=== PATIENT | female | born 1960 | race Caucasian/White ===

== ENCOUNTER 2017-02-24 09:55 | Emergency (ER) | payer OTHER ==
[~2017-02-24] VITALS: Ht 165.1 cm; Wt 70.0 kg
[~2017-02-24 09:55] MED LIST: BACT800T5 PO; ENBR50IN3 SC
[2017-02-24 09:57] VITALS: BP 126/69; PULSE 67; RESP 20; TEMP 98.2; O2SAT 97
--- NOTE | 2017-02-24 10:23 | RADRPT ---
EXAM DATE/TIME: 02/24/2017 10:15 [place] COMPARISON: No previous studies available for comparison. INDICATIONS : Mid sternal chest pains with some mild pressure. MEDICAL HISTORY : None. SURGICAL HISTORY : None. ENCOUNTER: Initial ACUITY: 1 day PAIN SCORE: 3/10 LOCATION: Bilateral chest FINDINGS: PA and lateral views of the chest demonstrate the lungs to be symmetrically aerated without evidence of mass, infiltrate or effusion. The cardiomediastinal contours are unremarkable. Osseous structure s are intact. CONCLUSION: No acute disease. Donny Avery Jr., MD on February 24, 2017 at 10:21 Board Certified Radiologist. This report was verified electronically.
[2017-02-24 10:30] LABS: AUTOMATED NEUTROPHIL # 5.4 TH/MM3 (1.8-7.7); BASOPHIL % 0.6 % (0.0-2.0); EOSINOPHIL # 0.1 TH/MM3 (0-0.4); EOSINOPHIL % 1.8 % (0.0-4.0); HEMATOCRIT 40.3 % (35.0-46.0); HEMO FLAGS DIFF FINAL; LYMPH % 16.9 % (9.0-44.0); LYMPHOCYTE # 1.3 TH/MM3 (1.0-4.8); MEAN CELL VOLUME 90.3 FL (80.0-100.0); MEAN CORPUSCULAR HEMOGLOBIN 31.2 PG (27.0-34.0); MEAN CORPUSCULAR HGB CONC 34.6 % (32.0-36.0); MONO % 8.6 % (0.0-8.0); NEUT % 72.1 % (16.0-70.0); PLATELET COUNT 215 TH/MM3 (150-450); RED BLOOD COUNT 4.47 MIL/MM3 (4.00-5.30); RED CELL DISTRIBUTION WIDTH 13.2 % (11.6-17.2); WHITE BLOOD COUNT 7.5 TH/MM3 (4.0-11.0)
[2017-02-24 10:38] LABS: APTT (PATIENT) 27.5 SEC (24.3-30.1); INTERNATIONAL NORMALIZED RATIO 0.9 RATIO; PROTHROMBIN TIME - PATIENT 10.3 SEC (9.8-11.6)
[2017-02-24 10:54] LABS: ANION GAP 8 MEQ/L (5-15); BLOOD UREA NITROGEN 9 MG/DL (7-18); CHLORIDE 107 MEQ/L (98-107); GLOMERULAR FILTRATION RATE 77 ML/MIN (>89); MAGNESIUM 2.3 MG/DL (1.5-2.5); POTASSIUM 3.9 MEQ/L (3.5-5.1); SODIUM (NA) 143 MEQ/L (136-145)
[2017-02-24 11:04] LABS: CREATINE KINASE 64 U/L (26-192)
[2017-02-24] MEDS ORDERED: MELO-1 PO (11:34)
[2017-02-24] MEDS ORDERED: CYCL1TAB29 PO (11:34)
--- NOTE | 2017-02-24 11:35 | PD ---
HPI Chief Complaint: Dizziness Time Seen by Provider: 11:27 Travel History International Travel<30 days: No Contact w/Intl Traveler<30days: No Traveled to known affect area: No History of Present Illness HPI Patient is a 56-year-old female presenting to emergency evaluation of left neck pain and chest pressure. Patient states it started over the weekend, there was no previous injury or trauma. Patient states the pain in the left neck radiates down her left arm. When the pain exacerbates it caused her to feel nauseated and dizzy. She reports a discomfort in her chest, she does report indigestion. The neck pain is causing to her have a headache that starts in the base of her head and radiates up. Patient has had headaches in the past which are similar to what she is experiencing now. Patient has no cardiac history, she really denies any significant family history of cardiac illness. She has a past medical history significant for hyperlipidemia and psoriasis. She is a nonsmoker, drinks wine occasionally. She reports her pain level is a 3 -5 out of 10. 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 Reported Meds & Prescriptions Reported Meds & Active Scripts Active Flexeril (Cyclobenzaprine HCl) 10 Mg Tab 10 Mg PO TID PRN 10 Days Meloxicam 15 Mg Tab 15 Mg PO DAILY PRN Review of Systems Except as stated in HPI: all other systems reviewed are Neg HENT: Positive: Headaches, Neck Pain Cardiovascular: Positive: Chest Pain or Discomfort Gastrointestinal: Positive: Nausea Musculoskeletal: Positive: Myalgias, Cramping Physical Exam Narrative GENERAL: Well-developed, well-nourished, alert female. Resting comfortably in no acute distress. SKIN: Warm and dry. Hyperpigmented scaly patches noted on bilateral upper extremities, chest wall, back. HEAD: Atraumatic. Normocephalic. EYES: Pupils equal and round. No scleral icterus. No injection or drainage. ENT: No nasal bleeding or discharge. Mucous membranes pink and moist. NECK: Trachea midline. No JVD. No meningeal signs. Full range of motion with rotation, flexion, extension. CARDIOVASCULAR: Regular rate and rhythm. RESPIRATORY: No accessory muscle use. Clear to auscultation. Breath sounds equal bilaterally. GASTROINTESTINAL: Abdomen soft, non-tender, nondistended. Hepatic and splenic margins not palpable. MUSCULOSKELETAL: Extremities without clubbing, cyanosis, or edema. No obvious deformities. Tenderness to palpation in left paraspinal musculature. NEUROLOGICAL: Awake and alert. No obvious cranial nerve deficits. Motor grossly within normal limits. Five out of 5 muscle strength in the arms and legs. Normal speech. PSYCHIATRIC: Appropriate mood and affect; insight and judgment normal. Data Data Last Documented VS Vital Signs Date Time Temp Pulse Resp B/P Pulse Ox O2 Delivery O2 Flow Rate FiO2 02/24/17 09:57 98.2 67 20 126/69 97 Room Air Orders Electrocardiogram (02/24/17 10:02) Basic Metabolic Panel (Bmp) (02/24/17 10:02) Ckmb (Isoenzyme) Profile (02/24/17 10:02) Complete Blood Count With Diff (02/24/17 10:02) Magnesium (Mg) (02/24/17 10:02) Prothrombin Time / Inr (Pt) (02/24/17 10:02) Act Partial Throm Time (Ptt) (02/24/17 10:02) Troponin I (02/24/17 10:02) Chest, Pa & Lat (02/24/17 10:02) Labs Laboratory Tests Test 02/24/17 10:10 White Blood Count 7.5 TH/MM3 Red Blood Count 4.47 MIL/MM3 Hemoglobin 13.9 GM/DL Hematocrit 40.3 % Mean Corpuscular Volume 90.3 FL Mean Corpuscular Hemoglobin 31.2 PG Mean Corpuscular Hemoglobin 34.6 % Concent Red Cell Distribution Width 13.2 % Platelet Count 215 TH/MM3 Mean Platelet Volume 8.3 FL Neutrophils (%) (Auto) 72.1 % Lymphocytes (%) (Auto) 16.9 % Monocytes (%) (Auto) 8.6 % Eosinophils (%) (Auto) 1.8 % Basophils (%) (Auto) 0.6 % Neutrophils # (Auto) 5.4 TH/MM3 Lymphocytes # (Auto) 1.3 TH/MM3 Monocytes # (Auto) 0.6 TH/MM3 Eosinophils # (Auto) 0.1 TH/MM3 Basophils # (Auto) 0.0 TH/MM3 CBC Comment DIFF FINAL Differential Comment Prothrombin Time 10.3 SEC Prothromb Time International 0.9 RATIO Ratio Activated Partial 27.5 SEC Thromboplast Time Sodium Level 143 MEQ/L Potassium Level 3.9 MEQ/L Chloride Level 107 MEQ/L Carbon Dioxide Level 28.0 MEQ/L Anion Gap 8 MEQ/L Blood Urea Nitrogen 9 MG/DL Creatinine 0.78 MG/DL Estimat Glomerular Filtration 77 ML/MIN Rate Random Glucose 84 MG/DL Calcium Level 9.1 MG/DL Magnesium Level 2.3 MG/DL Total Creatine Kinase 64 U/L Troponin I LESS THAN 0.02 NG/ML MDM Medical Decision Making Medical Screen Exam Complete: Yes Emergency Medical Condition: Yes Interpretation(s) Last Impressions Chest X-Ray 02/24/17 1002 Signed Impressions: Service Date/Time: Friday, February 24, 2017 10:15 - CONCLUSION: No acute disease. Donny Avery Jr., MD Laboratory Tests Test 02/24/17 10:10 White Blood Count 7.5 TH/MM3 Red Blood Count 4.47 MIL/MM3 Hemoglobin 13.9 GM/DL Hematocrit 40.3 % Mean Corpuscular Volume 90.3 FL Mean Corpuscular Hemoglobin 31.2 PG Mean Corpuscular Hemoglobin 34.6 % Concent Red Cell Distribution Width 13.2 % Platelet Count 215 TH/MM3 Mean Platelet Volume 8.3 FL Neutrophils (%) (Auto) 72.1 % Lymphocytes (%) (Auto) 16.9 % Monocytes (%) (Auto) 8.6 % Eosinophils (%) (Auto) 1.8 % Basophils (%) (Auto) 0.6 % Neutrophils # (Auto) 5.4 TH/MM3 Lymphocytes # (Auto) 1.3 TH/MM3 Monocytes # (Auto) 0.6 TH/MM3 Eosinophils # (Auto) 0.1 TH/MM3 Basophils # (Auto) 0.0 TH/MM3 CBC Comment DIFF FINAL Differential Comment Prothrombin Time 10.3 SEC Prothromb Time International 0.9 RATIO Ratio Activated Partial 27.5 SEC Thromboplast Time Sodium Level 143 MEQ/L Potassium Level 3.9 MEQ/L Chloride Level 107 MEQ/L Carbon Dioxide Level 28.0 MEQ/L Anion Gap 8 MEQ/L Blood Urea Nitrogen 9 MG/DL Creatinine 0.78 MG/DL Estimat Glomerular Filtration 77 ML/MIN Rate Random Glucose 84 MG/DL Calcium Level 9.1 MG/DL Magnesium Level 2.3 MG/DL Total Creatine Kinase 64 U/L Troponin I LESS THAN 0.02 NG/ML Vital Signs Date Time Temp Pulse Resp B/P Pulse Ox O2 Delivery O2 Flow Rate FiO2 02/24/17 09:57 98.2 67 20 126/69 97 Room Air Differential Diagnosis Radiculopathy versus ACS versus metabolic abnormality versus other Narrative Course Patient is a 56-year-old female presenting with 5 days of left neck pain radiating to her arm. She also reports vague chest discomfort, she denied any significant history. Her vital signs are stable. Chest x-ray shows no acute disease, labs are reassuring, cardiac enzymes are negative 1 set. There is a tender point to the left neck musculature. Patient has not taken anything to alleviate the pain. Patient was also seen and evaluated by my attending physician. Patient does have a primary care provider in which to follow-up with. Less likely would be a cardiac etiology as symptoms started when the neck discomfort started, and again there is a tender point in the left neck musculature. EKG is also reassuring. It shows sinus rhythm with a rate of 59. Patient was given strict return precautions. She will be provided with anti- inflammatory as well as a muscle relaxer. She was advised to return immediately for any new or worsening symptoms. Patient verbalized understanding of instructions. Patient is stable for discharge. Diagnosis Primary Impression: Cervical radiculopathy Additional Impression: Discomfort in chest Referrals: Primary Care Physician 2 days Patient Instructions: Cervical Radiculopathy (ED), Chest Pain (ED), General Instructions Additional Instructions: Return to emergency department immediately for any new or worsening symptoms Follow-up with your primary doctor in 1-2 days Take medications as directed Apply warm moist heat to the affected area, continue range of motion exercises, avoid bed rest, avoid exacerbating activities Flexeril may make you drowsy, do not drive or operate machinery until you know how you reacted this medication. Med/Other Pt SpecificInfo: Prescription(s) given Scripts Cyclobenzaprine (Flexeril)10 Mg Tab10 Mg PO TID PRN (MUSCLE SPASM) 10 Days Ref 0 Prov:Loren Persaud 02/24/17 Meloxicam 15 Mg Tab15 Mg PO DAILY PRN (MUSCLE PAIN) #30 TAB Ref 0 Prov:Loren Persaud 02/24/17 Disposition: 01 DISCHARGE HOME Condition: Stable Loren Persaud Feb 24, 2017 11:34
--- NOTE | 2017-02-25 15:04 | EKG ---
Date Performed: 02/24/2017 Time Performed: 10:07:40 PTAGE: 56 years EKG: SINUS BRADYCARDIA MARKED LEFT AXIS DEVIATION ABNORMAL ECG NO PREVIOUS TRACING DOCTOR: Apolonia Fish Interpretating Date/Time 02/25/2017 14:58:50
== END 2017-02-24 11:54 | disposition home or self-care (01) ==
LOC: NEPC 09:55
DX: M54.12 Radiculopathy, cervical region (principal); R07.89 Other chest pain; R51 Headache; R00.1 Bradycardia, unspecified; R94.31 Abnormal electrocardiogram [ECG] [EKG]; E78.00 Pure hypercholesterolemia, unspecified; Z79.899 Other long term (current) drug therapy
CPT/HCPCS: 71020; 80048; 82550; 83735; 84484; 85025; 85610; 85730; 93005